=== PATIENT | male | born 1940 | race Caucasian/White ===

== ENCOUNTER 2021-05-02 15:50 | Observation (INO) ==
[2021-05-02] MEDS ORDERED: 0.9 % Sodium Chloride 1,000 ML IVC ONE (16:13)
[2021-05-02] MEDS ORDERED: *HR* Metoprolol 5 MG/5 ML VIAL IVP ONE (16:13)
[2021-05-02 16:57] LABS: Basophils # 0.1 K/mcL (0.0-0.2); Basophils % 0.6 %; Eosinophils # 0.3 K/mcL (0.0-0.6); Eosinophils % 2.4 %; Hematocrit 44.2 % (37.5-50.1); Hemoglobin 14.2 g/dL (12.9-16.9); Immature Granulocytes % 0.7 % (0-4); Lymphocytes # 2.2 K/mcL (0.6-4.6); Lymphocytes % 18.9 %; Mean Corpuscular HGB Conc 32.1 g/dL (31.6-35.5); Mean Corpuscular Hemoglobin 30.6 pg (28.0-33.3); Mean Corpuscular Volume 95.3 fL (83.0-100.0); Mean Platelet Volume 9.8 fL (9.4-12.4); Monocytes % 8.4 %; Neutrophils # 7.9 K/mcL (1.6-8.9); Platelet Count 279 K/mcL (140-400); Red Blood Count 4.64 M/mcL (4.19-5.50); Red Cell Distribution Width 14.2 % (11.5-14.5); White Blood Count 11.4 K/mcL (4.3-11.1)
[2021-05-02 17:09] LABS: Alanine Aminotransferase 20 Units/L (7-52); Albumin 3.6 g/dL (3.5-5.7); Albumin/Globulin Ratio 1.2 (1.1-2.2); Alkaline Phosphatase 53 Units/L (34-104); Aspartate Amino Transferase 22 Units/L (13-39); BUN/Creatinine Ratio 12 (6-26); Bilirubin,Direct 0.1 mg/dL (0.0-0.2); Bilirubin,Indirect 0.4 mg/dL (0.0-1.0); Bilirubin,Total 0.5 mg/dL (0.3-1.0); Blood Urea Nitrogen 22 mg/dL (8-23); Calcium 9.3 mg/dL (8.6-10.3); Carbon Dioxide 23 mEq/L (23-29); Chloride 107 mEq/L (98-107); Globulin 3.1 g/dL (2.4-3.5); Glucose 115 mg/dL (70-105); Osmolality,Calculated 294 (280-300); Sodium 140 mEq/L (136-145); Total Protein 6.7 g/dL (6.4-8.9); Troponin I < 0.03 ng/mL (< 0.04); eGFR For African Americans 43 (> 60); eGFR For Non-African Americans 36 (> 60)
[2021-05-02 17:12] LABS: VBG HCO3 23 mEq/L (21-27); VBG PCO2 37 mmHg (41-51); VBG PH 7.41 pH Units (7.32-7.42); VBG PO2 70 mmHg (25-50)
[2021-05-02 17:23] LABS: Magnesium 1.7 mg/dL (1.6-2.6); Thyroid Stimulating Hormone 1.043 mcIU/mL (0.340-5.600)
[2021-05-02] MEDS ORDERED: DilTIAZem 50 MG/50 ML IV.SOLN IVC SCH (17:30)
[2021-05-02] MEDS ORDERED: Acetaminophen 325 MG TABLET PO PRN (18:00)
[2021-05-02] MEDS ORDERED: Naloxone 0.4 MG/ML INJ IVP PRN (18:00)
[2021-05-02] MEDS ORDERED: *HR* HYDROcodone/Acet 5/325 mg TABLET PO PRN (18:00)
[2021-05-02] MEDS ORDERED: Melatonin 3 MG TABLET PO PRN (18:00)
[2021-05-02] MEDS ORDERED: Ondansetron 4 MG/2 ML VIAL IVP PRN (18:00)
[2021-05-02] MEDS ORDERED: Ipratropium/Albuterol Neb 3 ML IH PRN (18:05)
[2021-05-02] MEDS ORDERED: Perflutren Lipid Microsphere 1.3 ML in 0.9 % Sodium Chloride 8.7 ML IVP PRN (18:08)
[2021-05-02] MEDS ORDERED: cefTRIAXone 1,000 MG in 0.9 % Sodium Chloride Mini Bag 100 ML IVPB SCH (19:00)
[2021-05-02] MEDS: predniSONE 20 MG TABLET PO SCH (20:33)
[2021-05-02] MEDS: Azithromycin 250 MG TABLET PO SCH (20:33)
[2021-05-02] MEDS: Ipratropium/Albuterol Neb 3 ML IH SCH (21:23)
[2021-05-02] MEDS: Budesonide/Formoterol 160/4.5 1 PUFF INH IH SCH (21:23)
[2021-05-02 22:18] LABS: Bilirubin,Urine Negative (Negative); Blood,Urine Negative (Negative); Clarity,Urine Clear (Clear); Color,Urine Yellow (Yellow); Glucose,Urine (UA) Normal (Normal); Hyaline Casts,Urine Few per lpf (None Seen); Ketones,Urine Negative (Negative); Leukocyte Esterase,Urine Negative (Negative); Mucus,Urine Few per lpf (None-Few); Nitrite,Urine Negative (Negative); Protein,Urine 70 mg/dL (Neg-Trace); Specific Gravity,Urine 1.019 (1.010-1.025); Squamous Epithelial Cell,Urine Few per hpf (None-Few); Urobilinogen,Urine Normal (Normal); WBC,Urine 0-3 per hpf (0-3)
[2021-05-03 00:32] LABS: Basophils # 0.1 K/mcL (0.0-0.2); Basophils % 0.7 %; Eosinophils # 0.1 K/mcL (0.0-0.6); Hematocrit 44.5 % (37.5-50.1); Hemoglobin 13.9 g/dL (12.9-16.9); Immature Granulocytes % 1.1 % (0-4); Lymphocytes # 1.3 K/mcL (0.6-4.6); Lymphocytes % 11.8 %; Mean Corpuscular HGB Conc 31.2 g/dL (31.6-35.5); Mean Corpuscular Hemoglobin 30.3 pg (28.0-33.3); Mean Corpuscular Volume 97.2 fL (83.0-100.0); Mean Platelet Volume 9.8 fL (9.4-12.4); Monocytes # 0.2 K/mcL (0.0-1.3); Monocytes % 2.1 %; Neutrophils # 9.4 K/mcL (1.6-8.9); Platelet Count 285 K/mcL (140-400); Red Blood Count 4.58 M/mcL (4.19-5.50); Red Cell Distribution Width 14.1 % (11.5-14.5); Segmented Neutrophils % 83.3 %; White Blood Count 11.3 K/mcL (4.3-11.1)
[2021-05-03 00:41] LABS: INR 1.2; Prothrombin Time 13.3 Seconds (9.4-12.1)
[2021-05-03 00:53] LABS: Albumin 3.8 g/dL (3.5-5.7); Albumin/Globulin Ratio 1.2 (1.1-2.2); Bilirubin,Total 0.4 mg/dL (0.3-1.0); Chol/HDL Ratio 2.8 (0-4.9); Globulin 3.1 g/dL (2.4-3.5); Magnesium 1.7 mg/dL (1.6-2.6); Phosphorous 1.8 mg/dL (2.7-4.5); Potassium 4.7 mEq/L (3.5-5.1); Total Protein 6.9 g/dL (6.4-8.9)
[2021-05-03] MEDS: Ipratropium/Albuterol Neb 3 ML IH SCH ×4 (03:28→22:30)
[2021-05-03] MEDS: DilTIAZem CD (24hr) 120 MG CAP.ER.24H PO SCH (09:37)
[2021-05-03] MEDS: predniSONE 20 MG TABLET PO SCH (09:37)
[2021-05-03] MEDS: Aspirin 81 MG TAB.CHEW PO SCH (09:38)
[2021-05-03] MEDS: Budesonide/Formoterol 160/4.5 1 PUFF INH IH SCH ×2 (10:49→22:30)
[2021-05-03] MEDS: Azithromycin 250 MG TABLET PO SCH (18:00)
[2021-05-04] MEDS: Ipratropium/Albuterol Neb 3 ML IH SCH ×2 (04:09→10:31)
[2021-05-04 06:18] LABS: Hematocrit 38.2 % (37.5-50.1); Hemoglobin 12.7 g/dL (12.9-16.9); Mean Corpuscular HGB Conc 33.2 g/dL (31.6-35.5); Mean Corpuscular Hemoglobin 31.1 pg (28.0-33.3); Mean Corpuscular Volume 93.4 fL (83.0-100.0); Mean Platelet Volume 9.5 fL (9.4-12.4); Platelet Count 288 K/mcL (140-400); Red Blood Count 4.09 M/mcL (4.19-5.50); White Blood Count 14.2 K/mcL (4.3-11.1)
[2021-05-04 06:44] LABS: Phosphorous 3.6 mg/dL (2.7-4.5); Potassium 4.5 mEq/L (3.5-5.1)
[2021-05-04 07:01] VITALS: BP 144/79
[2021-05-04] MEDS: predniSONE 20 MG TABLET PO SCH (08:50)
[2021-05-04] MEDS: Aspirin 81 MG TAB.CHEW PO SCH (08:50)
[2021-05-04] MEDS: DilTIAZem CD (24hr) 120 MG CAP.ER.24H PO SCH (08:51)
[2021-05-04] MEDS: Fluticasone Propionate Nasal 50 MCG/SPRAY BOTTLE NS SCH ×2 (08:51→08:53)
[2021-05-04] MEDS ORDERED: Cholecalciferol (D-3) 1,000 UNIT (25MCG) TABLET PO SCH (09:00)
[2021-05-04] MEDS ORDERED: Multivit/Ca/Min/Fe/FA 1 TAB TABLET PO SCH (09:00)
[2021-05-04] MEDS: Budesonide/Formoterol 160/4.5 1 PUFF INH IH SCH (10:31)
== END 2021-05-04 10:50 | disposition home or self-care (01) ==
LOC: SUATTDRO → EMEROOARM 15:50 → CDU 15:50 → SUATTDRO 19:27 → CDU 19:46
PROVIDERS: ADMIT Student in an Organized Health Care Education/Training Program; ATTEND Internal Medicine

== ENCOUNTER 2022-01-24 06:03 | Inpatient (IN) ==
[~2022-01-24 06:03] MED LIST: 0.9 % Sodium Chloride 1,000 ML IVC ONE; Acetaminophen IV 1,000 MG/100 ML BAG IVPB ONE; Famotidine 20 MG/2 ML VIAL IVP ONE
[2022-01-24] MEDS ORDERED: 0.9 % Sodium Chloride 1,000 ML IVC ONE (06:15)
[2022-01-24] MEDS ORDERED: CeFAZolin Syr 2,000MG/20 ML 2,000 MG/20 ML SYRINGE IVPB ONE (06:28)
[2022-01-24] MEDS ORDERED: Ringers Solution, Lactated 1,000 ML IVC SCH (06:30)
[2022-01-24] MEDS ORDERED: *HR* Rocuronium Bromide 50 MG/5 ML VIAL ONE (07:12)
[2022-01-24] MEDS ORDERED: *HR* FentaNYL (PF) 100 MCG/2 ML VIAL ONE ×2 (07:12→10:01)
[2022-01-24] MEDS ORDERED: Ondansetron 4 MG/2 ML VIAL ONE (07:12)
[2022-01-24] MEDS ORDERED: *HR* Propofol 200 MG/20 ML VIAL IVP ONE (07:12)
[2022-01-24] MEDS ORDERED: *HR* Succinylcholine 200 MG/10 ML VIAL IVP ONE (07:12)
[2022-01-24] MEDS ORDERED: Sugammadex Sodium 200 MG/2 ML VIAL IV ONE (07:12)
[2022-01-24] MEDS ORDERED: Heparin 1,000 UNITS/500 mL 2,000 ML ONE (07:13)
[2022-01-24] MEDS ORDERED: 0.9 % Sodium Chloride 500 ML IVC SCH (07:15)
[2022-01-24] MEDS ORDERED: *HR* Phenylephrine 10 MG/ML VIAL ONE ×2 (07:18→11:08)
[2022-01-24] MEDS ORDERED: NiCARdipine 2.5 MG/10 ML Syringe IVPB ONE (07:25)
[2022-01-24] MEDS ORDERED: *HR* Heparin 5,000 UNIT/ML VIAL ONE (07:36)
[2022-01-24] MEDS ORDERED: Ondansetron 4 MG/2 ML VIAL IVP PRN ×2 (07:43→14:30)
[2022-01-24] MEDS ORDERED: Naloxone 0.4 MG/ML INJ IVP PRN ×2 (07:43→14:30)
[2022-01-24] MEDS ORDERED: Albuterol 2.5 MG/3 ML NEBULIZER IH PRN (07:43)
[2022-01-24] MEDS ORDERED: Nitroglycerin 0.4 MG TAB.SUBL SL PRN (07:43)
[2022-01-24] MEDS ORDERED: *HR* FentaNYL (PF) 100 MCG/2 ML VIAL IVP PRN (07:43)
[2022-01-24] MEDS ORDERED: ceFAZolin 1,000 MG, Sodium Chloride IRRigation 1,000 ML IR ONE (07:45)
[2022-01-24] MEDS ORDERED: *HR* Midazolam HCl 2 MG/2 ML VIAL ONE (08:24)
[2022-01-24] MEDS ORDERED: Heparin 1,000 UNITS/500 mL 1,000 ML ONE (10:49)
[2022-01-24] MEDS ORDERED: Heparin 1,000 UNITS/500 mL 500 ML ONE (12:41)
[2022-01-24] MEDS ORDERED: *HR* OxyCODONE Immed Rel 5 MG TABLET PO PRN (14:30)
[2022-01-24] MEDS ORDERED: *HR* OxyCODONE/APAP 5/325 TABLET PO PRN (14:30)
[2022-01-24] MEDS ORDERED: DEXAMETHASONE 0.75 MG PO PRN (14:30)
[2022-01-24] MEDS ORDERED: *HR* HYDROcodone/Acet 5/325 mg TABLET PO PRN (14:30)
[2022-01-24] MEDS ORDERED: 0.9 % Sodium Chloride 1,000 ML ONE (15:23)
[2022-01-24] MEDS: *HR* Labetalol 20 MG/4 ML SYRINGE IVP PRN ×2 (15:27→16:33)
[2022-01-24] MEDS: ceFAZolin 2,000 MG in 0.9 % Sodium Chloride 100 ML IVPB SCH ×2 (16:03→23:11)
[2022-01-24] MEDS: Acetaminophen 325 MG TABLET PO PRN (16:46)
[2022-01-24] MEDS: Lactobacillus 1 EACH CAP.SPRINK PO SCH (20:56)
[2022-01-25 03:45] LABS: Hematocrit 36.5 % (37.5-50.1); Hemoglobin 12.3 g/dL (12.9-16.9); Mean Corpuscular HGB Conc 33.7 g/dL (31.6-35.5); Mean Corpuscular Hemoglobin 32.8 pg (28.0-33.3); Mean Corpuscular Volume 97.3 fL (83.0-100.0); Mean Platelet Volume 9.8 fL (9.4-12.4); Platelet Count 154 K/mcL (140-400); Red Blood Count 3.75 M/mcL (4.19-5.50); Red Cell Distribution Width 12.7 % (11.5-14.5); White Blood Count 13.9 K/mcL (4.3-11.1)
[2022-01-25 04:05] LABS: Calcium 8.3 mg/dL (8.6-10.3); Potassium 4.9 mEq/L (3.5-5.1)
[2022-01-25] MEDS: Acetaminophen 325 MG TABLET PO PRN (05:07)
[2022-01-25] MEDS: Lactobacillus 1 EACH CAP.SPRINK PO SCH (08:15)
[2022-01-25] MEDS ORDERED: Aspirin Enteric Coated 81 MG Tablet PO SCH (09:00)
[2022-01-25] MEDS ORDERED: Fluticasone Propionate Nasal 50 MCG/SPRAY BOTTLE NS SCH (09:00)
[2022-01-25] MEDS ORDERED: Multivit/Ca/Min/Fe/FA 1 TAB TABLET PO SCH (09:00)
[2022-01-25] MEDS ORDERED: Ascorbic Acid 500 MG TABLET PO SCH (09:00)
[2022-01-25] MEDS ORDERED: Cholecalciferol (D-3) 1,000 UNIT (25MCG) TABLET PO SCH (09:00)
[2022-01-25] MEDS ORDERED: Zinc Gluconate [Zinc] 50 MG Tablet PO SCH (09:00)
[2022-01-25] MEDS ORDERED: Tiotropium 10 INH DOSE IH SCH ×2 (09:00→10:00)
[2022-01-25] MEDS: ceFAZolin 2,000 MG in 0.9 % Sodium Chloride 100 ML IVPB SCH (09:36)
[2022-01-25 11:50] VITALS: BP 137/47
[2022-01-25 13:05] VITALS: PULSE 68; TEMP 97.9; O2SAT 95
== END 2022-01-25 14:35 | disposition home or self-care (01) | DRG 272 ==
LOC: SAMDAY 06:03 → 2NNU 14:19
PROVIDERS: ADMIT Surgery Vascular Surgery; ATTEND Surgery Vascular Surgery